=== PATIENT | female | born 1935 | race Caucasian/White ===

== ENCOUNTER 2017-08-22 18:54 | Emergency (ER) | payer MEDICARE, OTHER ==
[~2017-08-22] VITALS: Ht 157.5 cm; Wt 62.6 kg
[2017-08-22] MEDS ORDERED: IPRATRPIUM/ALBUTEROL 0.5/2.5MG 3 ML NEBU. NEB ONE (19:45)
--- NOTE | 2017-08-22 20:12 | PHYS DOC ---
Adult General Chief Complaint Chief Complaint: SHORTNESS OF BREATH HPI HPI Patient is a 81 -year-old female presented to the emergency department for evaluation of a coughing spell with resulting cyanosis. Patient had not eaten or drank recently and was waiting to eat while she was sitting on the couch. All of a sudden she started having a coughing spell and she appeared to be having a very difficult time breathing per the daughter and her lips started turning blue. After the coughing spell stopped she regained her normal color and now the patient says that she feels well and has no complaints like to go home. Patient has a history of COPD and has had some increased cough but no change in sputum production. She has had multiple coughing spells similar to this in the past and she has had a swallow evaluation that they report was normal. She has no fevers shortness of breath or hypoxia currently and she appears well with normal vital signs. Review of Systems Review of Systems Constitutional: Denies fever or chills [] Respiratory: + cough. No shortness of breath [] Cardiovascular: No additional information not addressed in HPI [] GI: Denies abdominal pain, nausea, vomiting, bloody stools or diarrhea [] All other systems were reviewed and found to be within normal limits, except as documented in this note. Current Medications Current Medications Current Medications Medications (Trade) Dose Ordered Sig/Elisha Start Time Stop Time Status Last Admin Dose Admin Albuterol/ Ipratropium (Duoneb) 3 ml 1X ONCE 08/22/17 19:45 08/22/17 19:46 UNV Physical Exam Physical Exam Constitutional: Well developed, well nourished, no acute distress, non-toxic appearance. [] HENT: Normocephalic, atraumatic, bilateral external ears normal, oropharynx moist, no oral exudates, nose normal. [] Neck: Normal range of motion, no tenderness, supple, no stridor. [] Cardiovascular:Heart rate regular rhythm, no murmur [] Lungs & Thorax: Bilateral breath sounds slightly diminished with expiratory wheezing noted EKG EKG [] Radiology/Procedures Radiology/Procedures [] Course & Med Decision Making Course & Med Decision Making Patient is refusing any workup. I told daughters that it is possible that she could have sustained an aspiration event. She likely has some COPD exacerbation with laryngeal spasm likely from her saliva. Patient is back to normal currently but I told daughters if she has worsening shortness of breath fevers or cough that she may have developed an aspiration pneumonia needs to return to the emergency Department immediately. Otherwise she should follow with her primary care provider Friday. She was given DuoNeb and Decadron here and she says she still feels at her baseline and would like to go home. Patient aware and agreeable with plan for discharge and verbalized understanding of the need for short-term follow-up and strict ED return precautions discussed including worsening pain shortness of breath or other general concerns. Dragon Disclaimer Dragon Disclaimer This electronic medical record was generated, in whole or in part, using a voice recognition dictation system. Departure Departure: Impression: Primary Impression: Laryngospasm Additional Impression: Cough Disposition: HOME, SELF-CARE Condition: STABLE Referrals: SARAH MEDINA MD (PCP) Patient Instructions: Bronchospasm, Adult Problem Qualifiers TAMMY BILLINGS DO Aug 22, 2017 20:12
[2017-08-22 20:20] VITALS: BP 119/70
[2017-08-22] MEDS ORDERED: DEXAMETHASONE SOD PHOS 10 MG/ML VIAL PO ONE (20:30)
== END 2017-08-22 20:52 | disposition home or self-care (01) ==
LOC: ER 18:54
DX: J38.5 Laryngeal spasm (principal); J44.9 Chronic obstructive pulmonary disease, unspecified
CPT/HCPCS: 94640; 99283; J1100; J7620